=== PATIENT | female | born 1990 | race Caucasian/White ===

== ENCOUNTER 2017-10-03 23:59 | Emergency (ER) | payer OTHER ==
[~2017-10-03] VITALS: Ht 154.9 cm; Wt 68.0 kg
[2017-10-04 00:07] VITALS: BP 115/74
--- NOTE | 2017-10-04 00:58 | NUR ---
PATIENT CALLED TO PUT ON BED NO REPLY , TO CALL BACK AGAIN.
--- NOTE | 2017-10-04 01:03 | NUR ---
CALLED FOR THE SECOND TIME , NO RESPONSE
--- NOTE | 2017-10-04 01:08 | NUR ---
CALLED FOR THE THIRD NO RESPONSE, PATIENT LEFT WITHOUT BEING SEEN BY DR. JC. NO FURTHER CARE PROVIDED FOR PATIENT.
== END 2017-10-04 01:08 | disposition left against medical advice (07) ==
LOC: MED 23:59
DX: M79.641 Pain in right hand (principal); Z53.21 Procedure and treatment not carried out due to patient leaving prior to being seen by health care provider

== ENCOUNTER 2019-11-27 10:09 | Emergency (ER) | payer MEDICAID, SELFPAY ==
[~2019-11-27] VITALS: Ht 157.5 cm; Wt 64.0 kg
[2019-11-27 10:34] VITALS: BP 106/58
[2019-11-27] MEDS ORDERED: predniSONE 20 MG TAB PO ONE (12:25)
[2019-11-27] MEDS ORDERED: ALBUTEROL HFA MDI 90 MCG/ACTUATION 8 GM INH ONE (12:25)
[2019-11-27 14:00] VITALS: BP 106/58
== END 2019-11-27 14:00 | disposition home or self-care (01) ==
LOC: MED 10:09
DX: U07.1 COVID-19 (principal); J45.909 Unspecified asthma, uncomplicated
CPT/HCPCS: 71045; 94640; 99284; J7512; U0003

== ENCOUNTER 2019-11-28 11:45 | Emergency (ER) | payer MEDICAID, SELFPAY ==
[~2019-11-28] VITALS: Ht 160 cm; Wt 59.0 kg
--- NOTE | 2019-11-28 11:50 | NUR ---
29 Y/O F C/C SOB X 3 DAYS. PER PATIENT EXPOSED TO POSITIVE PATIENT, GRANDMOTHER. PT WAS TESTED IN [facility] ER FOR COVID, RESULTS PENDING. PER PT WAS SEEING YESTERDAY IN [facility] FOR SAME S/S. PT PRESENTS EUPNIC, VSS, SPEAKS IN FULL SENTENCES, A/OX4. 100% RA. FURTHER COMPLAINTS OF LOW APPETITIE. NKA. HX ASTHMA. RX ALBUTEROL. NO VOMITTING, COMPLAINTS OF DIARREAH. PT ON TENT.
[2019-11-28 11:53] VITALS: BP 117/72
--- NOTE | 2019-11-28 12:30 | NUR ---
Patient discharged with v/s stable. Written and verbal after care instructions given and explained. Patient verbalized understanding. Ambulatory with steady gait. All questions addressed prior to discharge. Advised to follow up with PMD.
[2019-11-28 12:32] VITALS: BP 117/72
== END 2019-11-28 12:30 | disposition home or self-care (01) ==
LOC: MED 11:45
DX: R06.02 Shortness of breath (principal); Z20.828 Contact with and (suspected) exposure to other viral communicable diseases; F41.9 Anxiety disorder, unspecified; R43.8 Other disturbances of smell and taste; J45.909 Unspecified asthma, uncomplicated
CPT/HCPCS: 99281

== ENCOUNTER 2019-12-01 09:41 | Emergency (ER) | payer MEDICAID, SELFPAY ==
[~2019-12-01] VITALS: Ht 154.9 cm; Wt 63.0 kg
[2019-12-01 09:50] VITALS: BP 134/68
--- NOTE | 2019-12-01 10:03 | NUR ---
c/o SOB x4 days. 02 sat ra 100%, no labored breathing or accesory muscle use noted. Pt reports grandmother is currently hospitalized with covid 19. has not had contact with her.
[2019-12-01 10:33] VITALS: BP 128/70
--- NOTE | 2019-12-01 10:33 | NUR ---
Patient discharged with v/s stable. Written and verbal after care instructions given and explained REGARDING HYPERVENTILATION. Patient alert, oriented and verbalized understanding of instructions. Ambulatory with steady gait. All questions addressed prior to discharge. ID band removed. Patient advised to follow up with PMD. Rx of XANAX given. Patient educated on indication of medication including possible reaction and side effects. Opportunity to ask questions provided and answered.
== END 2019-12-01 10:33 | disposition home or self-care (01) ==
LOC: MED 09:41
DX: R63.0 Anorexia (principal); R06.02 Shortness of breath; J45.909 Unspecified asthma, uncomplicated
CPT/HCPCS: 99283

== ENCOUNTER 2019-12-06 16:23 | Emergency (ER) | payer MEDICAID, SELFPAY ==
[~2019-12-06] VITALS: Ht 154.9 cm; Wt 62.1 kg
[2019-12-06 16:39] VITALS: BP 108/60
--- NOTE | 2019-12-06 16:39 | NUR ---
29 Y/O F C/C CHEST PAIN IN STERNUM AREA RADIATING TO THE LUE, 8/10 PAIN, PRESSURE SENSATION, NOTHING ALLEVIATES IT, NOTHING EXARCERBATES IT X1 DAY; DIARRHEA X 2 WEEKS. PER PT HX OF BLOOD CLOTS IN THE PAST DURING OBTAINED LOVENOX. NKA. NO HX. NO RX. NO NAUSEA/VOMITING. PT PRESENTS WITH VSS, EUPNIC. SIDE RAIL X1.
--- NOTE | 2019-12-06 16:44 | NUR ---
ERMD AT BEDSIDE
--- NOTE | 2019-12-06 16:50 | NUR ---
Dr. Jimenez is evaluating the patient at bedside.
[2019-12-06 17:27] VITALS: BP 106/62
--- NOTE | 2019-12-06 17:27 | NUR ---
Patient discharged with v/s stable. Written and verbal after care instructions given and explained. Patient alert, oriented and verbalized understanding of instructions. Ambulatory with steady gait. All questions addressed prior to discharge. ID band removed. Patient advised to follow up with PMD. Rx of IBUPROFEN,DECADRON given. Patient educated on indication of medication including possible reaction and side effects. Opportunity to ask questions provided and answered.
== END 2019-12-06 17:27 | disposition home or self-care (01) ==
LOC: MED 16:23
DX: U07.1 COVID-19 (principal); R07.9 Chest pain, unspecified; J02.9 Acute pharyngitis, unspecified; J45.909 Unspecified asthma, uncomplicated
CPT/HCPCS: 93005; 99283

== ENCOUNTER 2020-02-08 15:24 | Emergency (ER) | payer MEDICAID ==
[~2020-02-08] VITALS: Ht 154.9 cm; Wt 62.6 kg
[2020-02-08 16:21] VITALS: BP 122/85
[2020-02-08] MEDS ORDERED: DEXAMETHASONE 10 MG/ML VIAL PO STA (16:23)
--- NOTE | 2020-02-08 16:23 | NUR ---
29 YEAR OLD FEMALE COMPLAINS OF SOB X 3 DAYS. PT STATES SHE HAS ASTHMA AND HER ALBUTEROL HAS NOT BEEN HELPING HER LATELY. PT AOX4, BREATHING EVEN AND UNLABORED, SPO2 100% ON RA, RR 18. BED IN LOWEST POSITION, LOCKED, BED RAIL UPX1. PT PLACED ON MONITOR, VS STABLE. PMH - DENIES ALLERGIES - NKA
[2020-02-08] MEDS ORDERED: ALBUTEROL 0.083% 2.5 MG/3 ML NEBU INH ONE (16:25)
--- NOTE | 2020-02-08 16:40 | NUR ---
RT AT BEDSIDE
--- NOTE | 2020-02-08 16:48 | NUR ---
PMHX: ASTHMA LOC AWAKE AND ALERT VERBALLY RESPONSIVE HFW POSITION [facility] THERAPY AND RESPIRATORY DRUG GIVEN ORDERED ENCOURAGED PATIENT WITH ACKNOWLEDGEMENT FOR INTERMITTENT DEEP BREATHING DURING THERAPY
[2020-02-08 17:20] VITALS: BP 106/61
--- NOTE | 2020-02-08 17:20 | NUR ---
Patient discharged with v/s stable. Written and verbal after care instructions about asthma attacks given and explained. Patient alert, oriented and verbalized understanding of instructions. Ambulatory with steady gait. All questions addressed prior to discharge. ID band removed. Patient advised to follow up with PMD. Rx of proventil given. Patient educated on indication of medication including possible reaction and side effects. Opportunity to ask questions provided and answered.
== END 2020-02-08 17:20 | disposition home or self-care (01) ==
LOC: MED 15:24
DX: J45.901 Unspecified asthma with (acute) exacerbation (principal)
CPT/HCPCS: 94640; 99283; J1100; J7613

== ENCOUNTER 2020-02-09 05:25 | Emergency (ER) | payer MEDICAID ==
[~2020-02-09] VITALS: Ht 154.9 cm; Wt 63.6 kg
[2020-02-09 05:38] VITALS: BP 158/92
--- NOTE | 2020-02-09 05:45 | NUR ---
Assessment completed at 0545. Pt presented to the ED c/o 02/13 pain in her lower ABD and perineal area that started at 0400 on 02/09/20. pt describes pain as intermittent burning and stabbing. pt states never having felt this pain previously. pt denies taking any OTC medications. Pt is currently on their mesntrual cycle. Pt denies ABD surgery. Pt denies N/V. Pt. is afebrile. PMH: asthma NKA
--- NOTE | 2020-02-09 05:47 | NUR ---
PT TAKEN TO BED 12
--- NOTE | 2020-02-09 05:55 | NUR ---
Dr. Urrutia examining patient.
--- NOTE | 2020-02-09 06:15 | NUR ---
Female Senior National Account Manager, Margoth JANG accompanied female patient for Pelvic Exam performed by DAISY.
[2020-02-09] MEDS ORDERED: KETOROLAC 60 MG/2 ML VIAL IM ONE (06:30)
--- NOTE | 2020-02-09 07:26 | NUR ---
REPORT GIVEN TO LAINE RAPP FOR TRANSFER OF CARE.
--- NOTE | 2020-02-09 07:27 | NUR ---
Received report from LAINE Parada. Transfer of care at this time
--- NOTE | 2020-02-09 07:54 | NUR ---
Pt repositioned for comfort, given warm blanket and all needs met prior to leaving the room.
--- NOTE | 2020-02-09 09:23 | NUR ---
PT WAS D/C WITH VSS. PT WAS INSTRUCTED TO FOLLOW UP WITH PCP AND EDUCATED ON IN HOME CARE. PT UNDERSTOOD. PT AMBULATED OUT OF ER.
[2020-02-09 09:24] VITALS: BP 158/92
== END 2020-02-09 07:54 | disposition home or self-care (01) ==
LOC: MED 05:25
DX: R10.2 Pelvic and perineal pain (principal); R10.84 Generalized abdominal pain; R63.0 Anorexia
CPT/HCPCS: 76856; 81025; 96372; 99284; J1885; Q0092; 81002

== ENCOUNTER 2020-03-18 10:07 | Emergency (ER) | payer MEDICAID ==
[~2020-03-18] VITALS: Ht 154.9 cm; Wt 64.4 kg
[2020-03-18 10:11] VITALS: BP 118/73
--- NOTE | 2020-03-18 10:11 | NUR ---
PT ambulated to bed 06. RN evaluating at bedside.
--- NOTE | 2020-03-18 10:15 | NUR ---
30YO F C/O X 1 WEEK. PT IS A KNOWN ASTHMATIC. SHE CAME FROM HER MD AND WAS ADVICED TO COME TO ED FOR TREATMENT. IN ER, VSS. O2 SAT ON RA: 98%. NOT IN RESPIRATORY DISTRESS. PT RESTING COMFORTABLY IN BED. ERMD MADE AWARE OF PT STATUS. PMH: ASTHMA MEDS: ALBUTEROL INH NKA
--- NOTE | 2020-03-18 10:19 | NUR ---
Patient transferred to bed 8 for further care.
[2020-03-18] MEDS ORDERED: ALBUTEROL 0.083% 2.5 MG/3 ML NEBU INH ONE (10:25)
[2020-03-18] MEDS ORDERED: IPRATROPIUM 0.02% 0.5 MG/2.5 ML NEBU INH ONE (10:25)
[2020-03-18] MEDS ORDERED: predniSONE 20 MG TAB PO ONE (10:25)
--- NOTE | 2020-03-18 10:46 | NUR ---
RT AT BEDSIDE
[2020-03-18 11:08] VITALS: BP 118/73
--- NOTE | 2020-03-18 11:08 | NUR ---
Patient discharged with v/s stable. Written and verbal after care instructions given and explained. Patient alert, oriented and verbalized understanding of instructions. Ambulatory with steady gait. All questions addressed prior to discharge. ID band removed. Patient advised to follow up with PMD. Rx of PREDNISONE, AEROCHAMBER WITH MASK given. Patient educated on indication of medication including possible reaction and side effects. Opportunity to ask questions provided and answered.
== END 2020-03-18 11:08 | disposition home or self-care (01) ==
LOC: MED 10:07
DX: J45.901 Unspecified asthma with (acute) exacerbation (principal)
CPT/HCPCS: 94640; 99283; J7512; J7613; J7644

== ENCOUNTER 2020-05-28 10:45 | Emergency (ER) | payer MEDICAID ==
[~2020-05-28] VITALS: Ht 154.9 cm; Wt 66.7 kg
[2020-05-28 10:49] VITALS: BP 118/79
[2020-05-28] MEDS ORDERED: KETOROLAC 60 MG/2 ML VIAL IM ONE (11:50)
[2020-05-28 12:10] VITALS: BP 118/79
--- NOTE | 2020-05-28 12:10 | NUR ---
PCR swab collewcted and sent to lab.
--- NOTE | 2020-05-28 12:15 | NUR ---
Patient discharged with v/s stable. Written and verbal after care instructions given and explained. Patient alert, oriented and verbalized understanding of instructions. Ambulatory with steady gait. All questions addressed prior to discharge. ID band removed. Patient advised to follow up with PMD. Rx of prednisone, norco, motrin given. Patient educated on indication of medication including possible reaction and side effects. Opportunity to ask questions provided and answered.
== END 2020-05-28 12:15 | disposition home or self-care (01) ==
LOC: MED 10:45
DX: R51.9 Headache, unspecified (principal); R06.02 Shortness of breath; R05 Cough; M79.601 Pain in right arm; J45.909 Unspecified asthma, uncomplicated; Z20.828 Contact with and (suspected) exposure to other viral communicable diseases
CPT/HCPCS: 96372; 99283; J1885; U0003

== ENCOUNTER 2021-07-28 12:24 | Emergency (ER) | payer MEDICAID ==
[~2021-07-28] VITALS: Ht 154.9 cm; Wt 59.0 kg
[2021-07-28 12:33] VITALS: BP 128/85
--- NOTE | 2021-07-28 12:36 | NUR ---
PT AMBULATED TO ER BED 7 WITH A STEADY GAIT.
--- NOTE | 2021-07-28 12:54 | NUR ---
31 y/o F BIB self from home c/o vaginal bleeding with clots since this morning. Patient states moderate bleeding, saturating 1 pad q3-4hrs of dark red blood with 1 dime-sized clot. Pt denies vaginal pain/odor/itchiness, fever, chills, vomiting, diarrhea, dysuria, abdominal pain. Pt states fatigue + nausea x 1 week. Denies meds prior to arrival. LMP: 05/07/2021. T1 A0. Pt placed into a gown. Bed locked in lowest position, side rails x 1. PMH/Sx/Meds: asthma - albuterol NKDA
--- NOTE | 2021-07-28 12:56 | NUR ---
LAB AT BEDSIDE COLLECTING BLOODWORK
--- NOTE | 2021-07-28 13:06 | NUR ---
US tech at bedside
--- NOTE | 2021-07-28 13:24 | NUR ---
UA collected, walked to lab and handed to CPT. Jenny
--- NOTE | 2021-07-28 13:40 | NUR ---
Lab at bedside for redraw.
[2021-07-28 14:14] LABS: ALBUMIN 3.6 g/dL (3.4-5.0); ANION GAP 14.8 (8-16); CARBON DIOXIDE 23.1 mmol/L (21-32); CREATININE 0.7 mg/dL (0.6-1.3); POTASSIUM 3.9 mmol/L (3.5-5.1); TOTAL BILIRUBIN 0.3 mg/dL (0.0-1.0)
[2021-07-28 14:14] LABS: BILIRUBIN,URINE NEGATIVE (NEGATIVE); BLOOD, URINE 3+ (NEGATIVE); COLOR,URINE YELLOW (YELLOW); LEUKOCYTE ESTERASE ,URINE 2+ (NEGATIVE); NITRITE, URINE NEGATIVE (NEGATIVE); UGLUCOSE NEGATIVE (NEGATIVE)
[2021-07-28 14:19] LABS: APPEARANCE,URINE CLOUDY (CLEAR)
[2021-07-28 14:27] LABS: BASOPHILS # (AUTO) 0.1 K/uL (0.00-0.22); EOSINOPHILS # (AUTO) 0.7 K/uL (0-0.4); EOSINOPHILS % (AUTO) 7.4 % (0.0-4.0); HEMOGLOBIN 12.5 g/dL (12.0-16.0); LYMPHOCYTES # (AUTO) 2.3 K/uL (2.5-16.5); LYMPHOCYTES % (AUTO) 25.1 % (20.5-51.1); MEAN CORPUSCULAR HEMOGLOBIN 31 pg (27-31); MEAN CORPUSCULAR HGB CONC 34 g/dL (33-37); MEAN CORPUSCULAR VOLUME 91.5 fL (80-94); MONOCYTES # (AUTO) 0.6 K/uL (0.8-1.0); MONOCYTES % (AUTO) 6.1 % (1.7-9.3); NEUTROPHILS # (AUTO) 5.6 K/uL (1.8-7.7); NEUTROPHILS % (AUTO) 60.4 % (42.2-75.2); PLATELET COUNT (AUTO) 247 K/uL (140-450); RED BLOOD CELL COUNT(AUTO) 4.04 MIL/uL (4.20-5.40); RED CELL DISTRIBUTION WIDTH 12.9 % (11.6-13.7); WHITE BLOOD COUNT (AUTO) 9.2 K/uL (4.8-10.8)
[2021-07-28 14:34] LABS: RBC,URINE 0-5 /HPF (0-5); WBC,URINE 0-5 /HPF (0-5)
[2021-07-28] MEDS ORDERED: CEPH-588 PO (15:26)
[2021-07-28] MEDS ORDERED: cephALEXin 500 MG CAP PO ONE (15:30)
--- NOTE | 2021-07-28 16:54 | NUR ---
Dr. Dupree is reevaluating patient at bedside
[2021-07-28 17:16] VITALS: BP 105/62
--- NOTE | 2021-07-28 17:16 | NUR ---
Patient discharged with v/s stable. Written and verbal after care instructions given and explained for Threatened Miscarriage, Vaginal bleeding during , UTI. Patient alert, oriented and verbalized understanding of instructions. Ambulatory with steady gait. All questions addressed prior to discharge. ID band removed. Patient advised to follow up with PMD. Rx of Keflex given. Patient educated on indication of medication including possible reaction and side effects. Opportunity to ask questions provided and answered. Work note provided.
== END 2021-07-28 17:16 | disposition home or self-care (01) ==
LOC: MED 12:24
DX: O23.41 Unspecified infection of urinary tract in pregnancy, first trimester (principal); O20.0 Threatened abortion; J45.909 Unspecified asthma, uncomplicated; Z3A.08 8 weeks gestation of pregnancy; Z79.899 Other long term (current) drug therapy
CPT/HCPCS: 36415; 76801; 80053; 81001; 81025; 84702; 85025; 86886; 86900; 86901; 87086; 99284; Q0092

== ENCOUNTER 2021-08-02 18:04 | Emergency (ER) | payer MEDICAID ==
[~2021-08-02] VITALS: Ht 154.9 cm; Wt 59.0 kg
[~2021-08-02 18:04] MED LIST: CEPH-588 PO
[2021-08-02 18:16] VITALS: BP 130/76
--- NOTE | 2021-08-02 18:29 | NUR ---
pt amb to er bed 1
--- NOTE | 2021-08-02 19:10 | NUR ---
DOCTOR GAMEZ AT BEDSIDE
[2021-08-02 19:22] LABS: APPEARANCE,URINE CLEAR (CLEAR); BILIRUBIN,URINE NEGATIVE (NEGATIVE); BLOOD, URINE 3+ (NEGATIVE); COLOR,URINE RED (YELLOW); LEUKOCYTE ESTERASE ,URINE 2+ (NEGATIVE); NITRITE, URINE POSITIVE (NEGATIVE); UGLUCOSE TRACE (NEGATIVE)
[2021-08-02 19:48] LABS: BASOPHILS % (AUTO) 0.3 % (0.0-2.0); EOSINOPHILS # (AUTO) 0.4 K/uL (0-0.4); LYMPHOCYTES # (AUTO) 2.5 K/uL (2.5-16.5); MEAN CORPUSCULAR HEMOGLOBIN 31 pg (27-31); MEAN CORPUSCULAR HGB CONC 34 g/dL (33-37); MONOCYTES # (AUTO) 0.6 K/uL (0.8-1.0); MONOCYTES % (AUTO) 5.5 % (1.7-9.3); NEUTROPHILS # (AUTO) 7.7 K/uL (1.8-7.7); NEUTROPHILS % (AUTO) 68.2 % (42.2-75.2); PLATELET COUNT (AUTO) 278 K/uL (140-450); RED BLOOD CELL COUNT(AUTO) 3.89 MIL/uL (4.20-5.40); RED CELL DISTRIBUTION WIDTH 12.9 % (11.6-13.7); WHITE BLOOD COUNT (AUTO) 11.3 K/uL (4.8-10.8)
[2021-08-02 19:58] LABS: RBC,URINE >100 /HPF (0-5)
[2021-08-02 20:00] LABS: CALCIUM OXALATE CRYSTALS,UR None Seen /HPF (None Seen); COARSE GRANULAR CASTS,URINE None Seen /LPF (None Seen); FINE GRANULAR CASTS,URINE None Seen /LPF (None Seen); HYALINE CASTS, URINE None Seen /LPF (None Seen); OTHER CASTS, URINE None Seen /LPF (None Seen); OTHER CRYSTALS,URINE None Seen /HPF (None Seen); RED BLOOD CELL CASTS,URINE None Seen /LPF (None Seen); TRICHOMONAS,URINE None Seen /HPF (None Seen); TRIPLE PHOSPHATE CRYSTAL,UR None Seen /HPF (None Seen); URIC ACID CRYSTALS,URINE None Seen /HPF (None Seen); URINE AMORPHOUS URATE None Seen /HPF (None Seen); WAXY CASTS,URINE None Seen /LPF (None Seen); YEAST,URINE None Seen /HPF (None Seen)
[2021-08-02 20:03] LABS: WBC,URINE 0-5 /HPF (0-5)
[2021-08-02 20:26] LABS: ANION GAP 14.6 (8-16); CREATININE 0.7 mg/dL (0.6-1.3); POTASSIUM 3.6 mmol/L (3.5-5.1)
[2021-08-02 22:00] VITALS: BP 107/64
== END 2021-08-02 22:05 | disposition home or self-care (01) ==
LOC: MED 18:04
DX: O03.9 Complete or unspecified spontaneous abortion without complication (principal); O99.512 Diseases of the respiratory system complicating pregnancy, second trimester; J45.909 Unspecified asthma, uncomplicated; Z3A.16 16 weeks gestation of pregnancy; Z79.2 Long term (current) use of antibiotics
CPT/HCPCS: 36415; 80048; 81001; 81025; 84702; 85025; 87086; 99284